=== PATIENT | male | born 1995 | race Caucasian/White ===

== ENCOUNTER 2023-08-24 14:42 | Outpatient (CLI) | payer OTHER ==
--- NOTE | 2023-08-24 15:23 | Sleep Patient Instructions ---
Sleep Center Visit Summary - Patient Visit Information Reason for Visit: Initial consult for evaluation of sleep disordered breathing and other sleep issues. - Patient Instructions Instructions Attached: Sleep Study Additional Instructions: You will be completing a sleep study, either an in-lab polysomnography (PSG) or home sleep study (HST). You will follow-up in the sleep care office after the sleep study is completed to hear the results and talk about therapy, if needed. You will be called by our office staff to schedule this appointment, but you may contact us with any questions. - Clinic Information Contact: [facility] [address] [place] [address] [email or web address] T: [phone]
--- NOTE | 2023-08-24 15:27 | SLEEP CARE CONSULTATION ---
Information from patient questionnaire entered by Vannessa Rodriguez. I have reviewed and concur with the information entered by Vannessa Rodriguez. This document represents the service I personally performed and the decisions made by me, Therese Peck ARNP. History of Present Illness Service Date and Time: 08/24/2023 1442 Reason for Visit: New patient Chief Complaint: reports: Unrefreshed sleep, Snoring, Excessive daytime sleepiness, Fatigue Date of Onset: SNORING 8YRS FATIGUE AND UNREFRESHED SLEEP 1YR Usual bedtime: 10-11PM Time it takes to fall asleep: 5MIN Snores at night: Yes Observed to quit breathing while asleep: Yes Sleeps alone due to snoring: Yes (occasionally) Number of times waking at night: 1-2 Reasons for waking at night: reports: Snoring, Bathroom. denies: Choking, Gasping for air Toss, Turn, or Twitch while sleeping: Yes Recalls having dreams: Yes Usually gets out of bed at: 7AM Feels refreshed in the morning: No Morning headache: Yes (3-4 days a week; last for about 20 minutes; no meds) Sleepy or fatigued during the day: Yes (occasionally has unintentional naps occasionally for a few minutes) Ever fallen asleep while driving: Yes (drowsy driving; no accidents; worse when in college) Takes day naps: No Dreams during day naps: No Prior sleep studies: Yes Additional HPI information: I had the pleasure of seeing MARAL ROSA today regarding the possibility of him having a sleep disorder. His current complaints are excessive daytime sleepiness, fatigue, snoring and unrefreshed sleep. He says he snores really loudly and it affects his 's sleep. He says he does not wake up feeling rested and is tired all the time. His will notice "a deep breath" sometimes when he is sleeping. He says when he is emotional his legs will feel "wobbly". He has had times when he fell asleep when at the computer at work, wakes up with a lot of letters typed. He has also fallen asleep when talking with someone at work. He says he has snored since he was a teenager but the extreme fatigue and sleepiness is just in the last year. - Parasomnia Symptoms Ever been unable to move upon waking from sleep: No Walks in sleep: No Talks in sleep: No Ever acted out dreams in sleep: No Ever felt weak in the knees when startled or emotional: Yes (has fallen once to ground, scary emotional episode during training) Bothered by creepy, crawly, restless sensations in legs: No Problems with memory or concentration: Yes (memory worse in last year) Subjective Initial [place] Sleepiness Scale score: 14 (08/24/23) Past Medical History Past Medical History: reports: Other (shoulder surgery in High school ) Social History The patient's occupation is a AM. Patient is and lives in . Have you smoked in the past 12 months: No Alcohol use: Yes Alcohol amount and frequency: 3-5 DRINKS 2 X A MONTH Caffeine use: Yes Caffeine amount and frequency: 200-300MG CAFFEINE 5DAYS A WEEK Family History Family history of sleep disordered breathing: No Allergies and Home Medications Known drug allergies: No Drug allergies reviewed: Yes Home medication list reviewed: Yes Allergy and home medication list: Home Medications Medication Instructions Recorded Confirmed Last Taken Type Fexofenadine/Pseudoephedrine See Rx Instructions .ROUTE .COMPLEX 08/24/23 08/24/23 Unknown History [Leesa-D 24 Hour Tablet] Multivitamin See Rx Instructions .ROUTE .COMPLEX 08/24/23 08/24/23 Unknown History Review of Systems Weight gain over past 5 years: 50 Weight loss over past 5 years: 30 Cardiovascular: denies: high blood pressure Gastrointestinal: denies: heartburn Neurological: denies: headaches Psychiatric: denies: anxiety, depression Ear/Nose/Throat: reports: wisdom teeth removed. denies: tonsillectomy Endocrine: denies: thyroid disease Immunologic: reports: allergies to food or environment Physical Exam Vital signs obtained and entered by: VANNESSA Chauhan MA Blood Pressure: 113/66 (RIGHT ARM) Cuff size: regular Heart Rate: 75 O2 Saturation: 100 Height: 6 ft 4 in Weight: 252 lb 12.8 oz Body Mass Index: 30.7 BMI Classification: Obese Neck circumference: 16.5 Mouth and throat: narrow oropharynx Soft palate: long Hard palate: normal Uvula: normal Uvula visualization: 25% Mallampati Class III Tongue: normal in size Tonsils: small Neck: normal w/o lymphadenopathy or thyromegaly Heart: regular rate and rhythm Lungs: clear bilaterally Impression and Plan 1. Suspected Obstructive Sleep Apnea-Hypopnea Syndrome, as suggested by a history of loud and irregular snoring, morning headache, unrefreshed sleep, cognitive impairment, and excessive daytime sleepiness. Narrow oropharynx and obesity are common predisposing factors for obstructive sleep apnea-hypopnea syndrome. I recommend proceeding to polysomnography to confirm the diagnosis and to assess severity. If the patient has significant sleep disordered breathing, a manual CPAP titration study will also be performed to find the optimal treatment pressure. I informed the patient of what the sleep studies involve and after some discussion, obtained agreement to proceed. The pathophysiology of obstructive sleep apnea-hypopnea syndrome was discussed with the patient and health risks of cardiovascular and cerebrovascular disease if not treated. Risks of drowsy driving discussed in detail and patient advised to avoid long distance driving and to drum puller at the first sign of drowsiness. Patient agreed to plan. * Schedule polysomnography. * Avoid long distance driving or driving when feeling sleepy. * Avoid alcohol, sedative and muscle relaxant around bedtime. * Attempt to lose weight. * Review instructions provided by trained office staff on how to prepare for the sleep study. * Return for follow-up after sleep study completed. Counseling Topics: Weight loss health impact Plan: PSG Visit Type: In Office Time Spent with Patient (minutes): 30 Provider Statement: I spent 100% of the Face to Face Visit with the patient with greater than 50% spent counseling the patient and coordination of care.
[2023-08-24 15:35] VITALS: BP 113/66; O2SAT 100
== END 2023-08-24 14:43 | disposition home or self-care (01) ==
LOC: SC 14:42
PROVIDERS: ATTEND Nurse Practitioner Family
DX: R06.83 Snoring (principal); R51.9 Headache, unspecified; G47.8 Other sleep disorders; R41.89 Other symptoms and signs involving cognitive functions and awareness; G47.10 Hypersomnia, unspecified; E66.9 Obesity, unspecified; Z68.30 Body mass index [BMI] 30.0-30.9, adult
CPT/HCPCS: 99203; 99212

== ENCOUNTER 2023-10-06 20:38 | Outpatient (CLI) | payer OTHER | END 2023-10-06 20:39 | disposition home or self-care (01) | LOC: SC 20:38 | PROVIDERS: ATTEND Nurse Practitioner Family | DX: R06.83 Snoring (principal); G47.10 Hypersomnia, unspecified; R53.83 Other fatigue; R51.9 Headache, unspecified; G47.8 Other sleep disorders | CPT/HCPCS: 95810 ==

== ENCOUNTER 2023-10-20 14:49 | Outpatient (CLI) | payer OTHER ==
--- NOTE | 2023-10-20 15:08 | Sleep Patient Instructions ---
Sleep Center Visit Summary - Patient Visit Information Reason for Visit: Sleep study follow-up - Patient Instructions Instructions Attached: Snoring Tips Prevent Additional Instructions: Your sleep study today was negative for significant sleep disordered breathing. You were found to have episodes of snoring. There are different ways to control snoring including weight loss, oral devices made by a dentist or surgical options through ENT specialist. You should not use oral devices that do not fit properly because they can affect your bite. You should also check insurance coverage of oral devices for snoring because they may not be cover well. You may obtain a referral to an ENT specialist through your primary provider. Follow-up as needed. - Clinic Information Contact: [facility] [address] [place] [address] [email or web address] T: [phone]
--- NOTE | 2023-10-20 15:09 | SLEEP CARE CONSULTATION ---
Information from patient questionnaire entered by Vannessa Rodriguez. I have reviewed and concur with the information entered by Vannessa Rodriguez. This document represents the service I personally performed and the decisions made by , Therese Peck ARNP. History of Present Illness Service Date and Time: 10/20/2023 144 Initial [place] Sleepiness Scale score: 14 (08/24/23) Current [place] Sleepiness Scale score: 15 (10/20/23) Additional HPI information: MARAL ROSA returns for follow up and results of the recently performed polysomnography. The patient was informed of the following findings: No significant sleep disordered breathing with an average AHI of 2.1 and meli oxygen saturation of 86%. I explained the pathophysiology behind obstructive sleep apnea. Patient does not have sleep apnea and was advised how weight gain could increase the risk of developing sleep apnea in the future. I strongly encouraged the patient to lose weight. Patient has loud snoring. Snoring can be reduced by weight loss. Weight loss is best achieved with diet consult. Patient instructed to contact PCP for referral. Snoring can also be treated with an oral appliance from a dentist. Advised to check insurance coverage. In addition, an ENT evaluation can be do to see if other treatment is indicated. Patient does not drink alcohol. Patient was cautioned about risks of drowsy driving until sleepiness symptoms resolve. Sleep Study - Results Type of Sleep Study: Polysomnography (COMPLETED 10/06/23) Prior sleep studies: Yes Polysomnography/Home Sleep Study results: IMPRESSION: The quality of the study is fair to poor EEG signals. The patient had normal sleep efficiency. The sleep architecture was also normal. Respiratory monitoring showed no significant sleep disordered breathing (AHI = 2.1) or hypoxia (meli oxygen saturation of 86% and < 0.1% to the total sleep time was spent with oxygen saturation below 90%). The few respiratory events occurred almost exclusively during supine REM sleep (supine AHI = 3.7; non-supine = 0.00). Snore was intermittent but loud in intensity. There was no significant periodic leg movement of sleep. Cardiac rhythm was normal sinus rhythm without significant arrhythmia. No abnormal behavior (parasomnia) observed during the night. Allergies and Home Medications Known drug allergies: No Drug allergies reviewed: Yes Home medication list reviewed: Yes (no changes) Allergy and home medication list: Allergies No Known Drug Allergies Allergy (Verified 08/24/23 14:52) Review of Systems Review of systems same as previous: Yes (NO CHANGE) Physical Exam Vital signs obtained and entered by: VANNESSA Chauhan MA Blood Pressure: 126/72 (LEFT ARM) Heart Rate: 61 O2 Saturation: 100 Height: 6 ft 4 in Weight: 241 lb 9.6 oz Body Mass Index: 29.4 BMI Classification: Overweight Impression and Plan 1. Snoring but no significant sleep disordered breathing. Patient advised that often weight loss will reduce snoring as well as apnea risk. An oral appliance can also be used for snoring. This would require a dental consultation. Patient cautioned not to use other online appliances as can cause bite issues. Patient is advised to check if insurance will cover. An ENT consult can also be helpful to determine if any other treatment is an option. 2. Obesity, unspecified. Currently patients BMI is 29.4. Obesity increases the risk of apnea, CPAP pressure requirements and overall health risks especially cardiovascular and diabetes. Thus patient is advised to lose weight. * Attempt to lose weight * The patient is cautioned about driving until sleepiness is completely resolved. * Return as needed for follow up. Counseling Topics: Weight loss health impact Follow up with Sleep Care in: as needed Visit Type: In Office Time Spent with Patient (minutes): 13 Provider Statement: I spent 100% of the Face to Face Visit with the patient with greater than 50% spent counseling the patient and coordination of care.
[2023-10-20 15:17] VITALS: BP 126/72; O2SAT 100
== END 2023-10-20 14:50 | disposition home or self-care (01) ==
LOC: SC 14:49
PROVIDERS: ATTEND Nurse Practitioner Family
DX: R06.83 Snoring (principal); E66.3 Overweight; Z68.29 Body mass index [BMI] 29.0-29.9, adult
CPT/HCPCS: 99212